=== PATIENT | female | born 1930 | race Caucasian/White ===

== ENCOUNTER 2016-12-27 11:32 | Inpatient (IN) | payer MEDICARE ==
[~2016-12-27] VITALS: Ht 149.9 cm; Wt 68.1 kg
[2016-12-27] MEDS ORDERED: CELEXA40 MG PO (11:40)
[2016-12-27] MEDS ORDERED: DYAZIDE 25 MG-31 CAP PO (11:41)
[2016-12-27] MEDS ORDERED: COZAAR 50MG50 MG/TAB PO (11:41)
[2016-12-27] MEDS ORDERED: SYNTHROID0.05 MG/TA PO (11:43)
[2016-12-27] MEDS ORDERED: ASPIRIN 81M81 MG/TA2 PO (11:43)
[2016-12-27] MEDS ORDERED: PREVACID 30MG30 M1 PO (11:44)
[2016-12-27] MEDS ORDERED: MULTI VITAMINS1 TAB PO (11:44)
[2016-12-27] MEDS ORDERED: FISH OIL 1000MG1 CAP PO (11:44)
[2016-12-27] MEDS ORDERED: AMITRIPTYLINE H10 M1 PO (11:44)
[2016-12-27] MEDS ORDERED: OCUVITE1 TA1 PO (11:45)
[2016-12-27] MEDS ORDERED: STOOL SOFTENER100 M2 PO (11:45)
[2016-12-27] MEDS ORDERED: TYLENOL 8 HR PO (11:46)
[2016-12-27 12:56] LABS: BASO % 0.4 % (0.0-2.0); EOS # 0.1 (0.0-0.7); GRAN % 82.3 % (42.2-75.2); HEMATOCRIT 34.3 % (37.0-47.0); HEMOGLOBIN 12.1 g/dl (12.5-16.0); LYMPH # 0.7 (1.2-3.4); LYMPH % 10.1 % (20.0-51.0); MEAN CELL VOLUME 93 fl (80.0-100.0); MEAN CORPUSCULAR HEMOGLOBIN 33 pg (27.0-31.0); MEAN CORPUSCULAR HGB CONC 35 g/dl (33.0-37.0); MEAN PLATELET VOLUME 9.1 fl (7.4-10.4); MONO # 0.4 (0.1-0.6); MONO % 5.7 % (1.7-9.3); PLATELET COUNT 159 K/mm3 (130-400); RED BLOOD COUNT 3.69 M/mm3 (4.10-5.30); REDCELL DISTRIBUTION WIDTH-CV 12.3 % (11.5-14.5); WHITE BLOOD COUNT 7.3 K/mm3 (4.8-10.8)
[2016-12-27 13:08] LABS: ALBUMIN 3.8 gm/dL (3.5-5.0); BILIRUBIN,TOTAL 0.4 mg/dL (0.0-1.0); CALCIUM 8.8 mg/dL (8.4-10.2); CREATININE, serum 0.88 mg/dL (0.52-1.25); POTASSIUM 4.4 mmol/L (3.4-5.0); TOTAL PROTEIN 6.8 gm/dL (6.4-8.2)
[2016-12-27 14:30] VITALS: BP 148/51; PULSE 60; TEMP 98
[2016-12-27 14:51] LABS: PROTHROMBIN TIME 11.1 SECONDS (9.7-12.8)
[2016-12-27 17:26] VITALS: BP 151/55; PULSE 59
[2016-12-27 21:10] VITALS: BP 150/64; PULSE 73; TEMP 98.2
[2016-12-28 00:29] LABS: PH 5 (5-8); SQUAMOUS EPITHELIAL 0-2 /hpf; URINE APPEARANCE Clear; URINE BACTERIA Rare /hpf; URINE BILIRUBIN Negative (NEGATIVE); URINE BLOOD Negative (NEGATIVE); URINE COLOR Yellow; URINE GLUCOSE Negative (NEGATIVE); URINE KETONE Negative (NEGATIVE); URINE RBC 0-2 /hpf; URINE UROBILINOGEN Negative (NEGATIVE)
[2016-12-28 06:06] VITALS: BP 116/82; PULSE 71; TEMP 98.2
[2016-12-28 10:53] VITALS: BP 125/54; PULSE 79; TEMP 97.6
[2016-12-28 10:55] VITALS: BP 120/50; PULSE 70; TEMP 97.8
[2016-12-28 17:20] VITALS: BP 128/70; PULSE 79; TEMP 98.3
[2016-12-28 22:00] VITALS: BP 108/67; PULSE 70; TEMP 98
[2016-12-29 06:20] VITALS: BP 138/48; PULSE 71; TEMP 98.1
[2016-12-29 07:25] LABS: HEMOGLOBIN 10.4 g/dl (12.5-16.0)
[2016-12-29 07:43] LABS: CALCIUM 8.9 mg/dL (8.4-10.2); CREATININE, serum 0.64 mg/dL (0.52-1.25); POTASSIUM 3.9 mmol/L (3.4-5.0)
[2016-12-29 09:21] VITALS: BP 136/53; PULSE 57; TEMP 97.9
[2016-12-29 14:15] VITALS: BP 100/73; PULSE 70; TEMP 99
[2016-12-29 17:31] VITALS: PULSE 73; TEMP 97.9
[2016-12-29 21:57] VITALS: BP 125/51; PULSE 75; TEMP 98.5
[2016-12-30 02:00] VITALS: BP 146/60; PULSE 80; TEMP 98.5
[2016-12-30 05:19] VITALS: BP 138/60; PULSE 88; TEMP 98.3
[2016-12-30 07:20] LABS: HEMATOCRIT 26.7 % (37.0-47.0); HEMOGLOBIN 9.6 g/dl (12.5-16.0)
[2016-12-30 09:12] VITALS: BP 146/68; PULSE 75; TEMP 98.3
[2016-12-30 14:05] VITALS: BP 126/66; PULSE 84; TEMP 98.7
[2016-12-30 17:25] VITALS: BP 122/51; PULSE 79; TEMP 98.1
[2016-12-30 21:30] VITALS: BP 104/56; PULSE 73; TEMP 97.9
[2016-12-31 05:40] VITALS: BP 109/61; PULSE 93; TEMP 98
[2016-12-31 07:53] LABS: HEMATOCRIT 24.7 % (37.0-47.0)
[2016-12-31] MEDS ORDERED: XARELTO10 MG PO (08:11)
[2016-12-31] MEDS ORDERED: AMOXICILLIN 8751 TAB PO (08:11)
[2016-12-31 09:30] VITALS: BP 116/53; PULSE 79; TEMP 97.9
[2016-12-31 14:44] VITALS: BP 111/45; PULSE 83
[2016-12-31 17:41] VITALS: BP 124/52; PULSE 63
[2016-12-31 20:02] VITALS: BP 132/47; PULSE 83; TEMP 97.7
[2017-01-01 00:31] VITALS: BP 155/75; PULSE 93; TEMP 98.1
[2017-01-01 03:41] VITALS: BP 139/73; PULSE 79; TEMP 98.3
[2017-01-01 06:20] VITALS: BP 134/62; PULSE 91; TEMP 98.6
[2017-01-01] MEDS ORDERED: NORCO 325 MG-51 TAB PO (09:06)
[2017-01-01 09:33] VITALS: BP 107/54; PULSE 85; TEMP 97.7
[2017-01-01 10:10] VITALS: BP 107/54; PULSE 85; TEMP 97.7
== END 2017-01-01 11:01 | DRG 481 ==
LOC: COL.ER 11:32 → SURG 12:52
PROVIDERS: Emergency Medicine; Internal Medicine; Nurse Practitioner Family; Orthopaedic Surgery
PROC: 0QS604Z Reposition Right Upper Femur with Internal Fixation Device, Open Approach (ICD-10-PCS; principal; 2016-12-28 13:30)
DX: S72.141A Displaced intertrochanteric fracture of right femur, initial encounter for closed fracture (principal); N39.0 Urinary tract infection, site not specified; W18.30XA Fall on same level, unspecified, initial encounter; I10 Essential (primary) hypertension; B95.2 Enterococcus as the cause of diseases classified elsewhere
CPT/HCPCS: 99223-AI; 99231-AI; 99232-AI; 99239; A9284; C1713; C1776; J0690; J1100; J1170; J2250; J2270; J2405; J2704; J2765; J3010; J7030; J7040; J7120